=== PATIENT | male | born 1975 | race African-American/Black ===

== ENCOUNTER 2023-12-12 09:21 | Emergency (ER) | payer MEDICAID, SELFPAY ==
[2023-12-12] VITALS (7 sets, daily range): BP systolic 144–166; BP diastolic 100–111; PULSE 61–85; RESP 16–18; TEMP 36.7–37.1; O2SAT 97–99; BMI 27.4
--- NOTE | ~2023-12-12 | XR_ITS ---
EXAMINATION: XR CHEST CLINICAL INFORMATION: Chest heaviness. Lightheaded. COMPARISON: None available. TECHNIQUE: 2 views of the chest were obtained. FINDINGS: The heart is normal in size. The lungs are clear. Pleural spaces are clear. No pneumothorax. No acute osseous abnormality. XR/XR chest 2V IMPRESSION: No acute cardiopulmonary disease.
--- NOTE | 2023-12-12 09:27 | ECG_ITS ---
Test Reason : DIZZINESS Blood Pressure : / mmHG Vent. Rate : 073 BPM Atrial Rate : 073 BPM P-R Int : 212 ms QRS Dur : 096 ms QT Int : 350 ms P-R-T Axes : 035 -29 -04 degrees QTc Int : 385 ms Sinus rhythm with 1st degree A-V block Otherwise normal ECG No previous ECGs available Referred By: Generic ED Physician Electronically Signed By:JUAN REGALADO
[2023-12-12 09:48] LABS: MANUAL DIFF FLAG NO
[2023-12-12 09:49] LABS: Basophils Absolute Auto 0.1 X10*3/uL (0.0-0.2); Basophils Percent Auto 0.9 % (0-2); Eosinophils Absolute Auto 0.3 X10*3/uL (0.0-0.4); Hematocrit 44.7 % (42.0-52.0); Imm Gran Abs Auto 0.02 X10*3/uL (0.00-0.03); Imm Gran Pct Auto 0.3 % (0.0-0.4); Lymphocytes Absolute Auto 2.5 X10*3/uL (1.2-4.9); Lymphocytes Percent Auto 35.4 % (20-40); Mean Corpuscular HGB Conc 33.6 g/dl (31.0-36.0); Mean Corpuscular Hemoglobin 30.6 pg (27.0-33.0); Mean Corpuscular Volume 91.2 fL (80.0-98.0); Mean Platelet Volume 11.6 fL (9.4-12.4); Monocytes Absolute Auto 0.5 X10*3/uL (0.1-1.2); Monocytes Percent Auto 7.5 % (2-11); Neutrophils Absolute Auto 3.6 x10*3/uL (2.0-8.3); Neutrophils Percent Auto 51.9 % (45-73); Platelet Count 195 X10*3/uL (160-400); Red Cell Distribution Width 14.7 % (11.0-16.0); White Blood Count 6.9 X10*3/uL (4.8-10.8)
[2023-12-12 10:05] LABS: Anion Gap 13 (12-20); Blood Urea Nitrogen 16 mg/dL (9-16); Calcium 9.4 mg/dL (8.4-10.2); Carbon Dioxide 25 mmol/L (22-29); Chloride 106 mmol/L (96-108); Creatinine Clr Calc Pharmacy 90.3; Estimated Glomerular Filt Rate > 60; Glucose Random 128 mg/dL (60-115); Potassium 3.6 mmol/L (3.3-5.1); Sodium 140 mmol/L (135-145)
--- NOTE | 2023-12-12 11:19 | ED.GENADULT ---
HPI - General Adult General Chief complaint: Dizziness Stated complaint: Lightheaded Time Seen by Provider: 12/12/23 11:15 Source: patient Mode of arrival: ambulatory Limitations: no limitations History of Present Illness ED Provider: yosi LOMBARDO narrative: Patient is a 48-year-old male with no reported past medical history presenting to the emergency department with complaint of feeling lightheaded with position change for the past several weeks. States he notices this the most when he gets up in the morning and when he goes to bed at night, but has also noticed it when getting out of his car as well. He reports brief episodes of sharp chest pain intermittently which last just a few seconds at at time. Denies shortness of breath or palpitations. Denies any episodes of syncope. Denies recent surgery/immobilization, calf pain or swelling. Denies abdominal pain, nausea or vomiting. Denies headaches or changes in vision. Denies cough or recent URI symptoms. complaint: lightheaded Quality: sharp Pain Consistency: intermittent Treatments prior to arrival: none Related Data Previous Rx's ?Medication ?Instructions ?Recorded amlodipine 5 mg tablet 5 mg PO DAILY #30 tabs 12/12/23 Allergies Allergy/AdvReac Type Severity Reaction Status Date / Time No Known Allergies Allergy Verified 12/12/23 09:27 Review of Systems Review of Systems: As per HPI. Yes all other systems are reviewed and are negative Constitutional: Constitutional: Reports as per HPI [facility] Social History Social History Alcohol intake: current Alcohol intake frequency: 3 or more drinks per day Alcohol type: beer Smoked in Last 30 Days: Yes Substance Use Type: Crack/Cocaine and Marijuana Substance Use Frequency: Occasionally Last Used Substance: Days (ago) Any prior treatment program specific to substance use: No Advance Directives: No Advance Directives Information Provided: Yes Physical Exam ED Vital Signs: Vital Signs - 24 hr 12/12/23 09:24 12/12/23 10:14 12/12/23 10:15 Temperature 98.6 F Pulse Rate 78 85 83 Respiratory Rate 16 Blood Pressure 154/104 H 165/103 H 166/103 H Pulse Oximetry 97 Oxygen Delivery Method Room Air 12/12/23 10:16 12/12/23 12:57 12/12/23 16:29 Temperature 98.7 F 98.1 F Pulse Rate 81 61 69 Respiratory Rate 18 17 Blood Pressure 144/106 H 151/100 H 163/111 H Pulse Oximetry 98 99 Oxygen Delivery Method Room Air Room Air BMI result Body Mass Index 27.4 Vital signs have been reviewed and appear to be correct. Blood pressure elevated. Heart rate normal. Respiratory rate normal. Temperature normal. Oxygen saturation normal. Const General: cooperative, healthy appearing and no acute distress Orientation/consciousness: oriented to person, oriented to place, oriented to time and patient oriented x3 Limitations: no limitations HENMT Head: Yes normocephalic and Yes atraumatic Ears: external ears normal, TM's normal bilaterally and EAC's normal General nose exam: Normal external nose present Face and sinus: Yes face symmetric Mouth: oropharynx normal and moist mucous membranes Throat: Yes uvula midline Eyes General: appearance normal, both eyes and all related structures Pupils: Equal, round and reactive pupils present EOM: EOMs intact bilaterally and No Nystagmus present Neck Neck: Yes normal visual inspection, Yes full ROM, Yes no lymphadenopathy, Yes no meningeal signs and Yes supple Resp Effort & Inspection: normal respiratory effort and able to speak in complete sentences Auscultation: clear to auscultation bilaterally Cardio Rate: regular rate Rhythm: regular rhythm Heart sounds: S1 normal heart sound present and S2 normal heart sound present GI Palpation (GI): Soft to palpation and nontender Auscultation: normoactive bowel sounds General: Yes no CVA tenderness Back/Spine/Pelvis Back: no CVA tenderness Skin General skin exam: elasticity normal and turgor normal Neuro General: oriented to person, oriented to place, oriented to time, patient oriented x3, gait normal, tone normal, moves all extremities, Normal light touch and pain sensation, no meningeal signs, no focal motor deficits, CN's II-XI intact bilaterally and deep tendon reflexes 2+ bilaterally Cranial nerves: Yes Equal, round and reactive pupils present and No Nystagmus present Cognition (Neuro): normal cognition Motor exam (neuro): 5/5 motor strength present throughout, Pronator motor function not present, no tremor noted, no asterixis, Motor fasciculations not present, Normal motor muscle tone present throughout and Motor abnormalities not present Extrem General: Yes full ROM, Yes no pedal edema and Yes no calf tenderness Psych Mental Status: mental status grossly normal Affect: normal affect Thought process: Normal thought process present Course Reevaluation(s) Reevaluation #1: I Sandy Duran PA-C have accepted care of the patient had signed out pending troponin and final disposition. Time: 02:00 Reevaluation #2: Patient's troponins are flat, we will discharge now. Time: 16:14 Medical Decision Making Medical Decision Making [facility] Narrative: Patient is a 48-year-old male with no reported past medical history presenting to the emergency department with complaint of feeling lightheaded with position change for the past several weeks. On exam patient is awake, A+Ox3,BP elevated, VS otherwise WNL, afebrile, normal neurological exam without focal deficits, physical exam findings as above. Given reported symptoms and physical exam findings, initial differential includes cardiac arrhythmia, dehydration, electrolyte abnormality, orthostatic intolerance. Unlikely ACS, but will obtain troponin. Do not suspect PE, PERC negative. Labs notable for troponin of 79.6, will obtain repeat. EKG shows sinus rhythm with 1st degree AV block. Patient signed out to [facility] pending chest x-ray results and repeat troponin. Differential Diagnosis Differential Diagnoses: The differential diagnosis associated with the presentation includes As per [facility]. Admission/Observation Consideration of admission/observation: Escalation of care including admission/observation considered Patient would have been admitted to the hospital had their work up had any findings where hospital admission was appropriate and their clinical presentation warranted hospital admission. Lab Data [facility] Lab Attestation statement: I reviewed the patient's lab results. As per [facility] 12/12/23 09:44 12/12/23 09:44 Labs: Lab Results 12/12/23 12/12/23 12/12/23 Range/Units 09:44 13:24 15:33 WBC 6.9 (4.8-10.8) X10*3/uL RBC 4.90 (4.60-5.80) X10*6/uL Hgb 15.0 (14.0-18.0) g/dl Hct 44.7 (42.0-52.0) % MCV 91.2 (80.0-98.0) fL MCH 30.6 (27.0-33.0) pg MCHC 33.6 (31.0-36.0) g/dl RDW 14.7 (11.0-16.0) % Plt Count 195 (160-400) X10*3/uL MPV 11.6 (9.4-12.4) fL Immature Gran % (Auto) 0.3 (0.0-0.4) % Neut % (Auto) 51.9 (45-73) % Lymph % (Auto) 35.4 (20-40) % Carter % (Auto) 7.5 (2-11) % Eos % (Auto) 4.0 (0-4) % Baso % (Auto) 0.9 (0-2) % Lymph # (Auto) 2.5 (1.2-4.9) X10*3/uL Carter # (Auto) 0.5 (0.1-1.2) X10*3/uL Eos # (Auto) 0.3 (0.0-0.4) X10*3/uL Baso # (Auto) 0.1 (0.0-0.2) X10*3/uL Abs Immat Gran (auto) 0.02 (0.00-0.03) X10*3/uL Absolute Neuts (auto) 3.6 (2.0-8.3) x10*3/uL Absolute Nucleated RBC 0.000 (0.0-0.012) X10*3/uL Nucleated RBC % (auto) 0.0 (0.0-0.2) /100WBC Sodium 140 (135-145) mmol/L Potassium 3.6 (3.3-5.1) mmol/L Chloride 106 (96-108) mmol/L Carbon Dioxide 25 (22-29) mmol/L Anion Gap 13 (12-20) BUN 16 (9-16) mg/dL Creatinine 1.11 (0.5-1.4) mg/dL Estim Creat Clear Calc 90.3 Estimated GFR > 60 Random Glucose 128 H (60-115) mg/dL Calcium 9.4 (8.4-10.2) mg/dL Troponin I High Sens 79.6 H 75.8 H (<3.5-35.0) ng/L Independent Interpretation I performed an independent interpretation of an: EKG (EKG shows sinus rhythm with first degree AV block, rate 73bpm, normal QTc) External Record Review External record reviewed: Inpatient record, Office record and Outpatient record Discharge Plan Discharge Clinical Impression: Light-headedness Patient Disposition: Home, Self-Care Instructions: Dizziness (ED) Additional Instructions: All of your labs including 2 cardiac enzymes were within normal limits for you. There were no concerning changes on your EKG. You need to follow up with your primary care provider, your blood pressure was elevated here in the emergency department. You require additional assessment in the way of a likely ECHO, which is an ultrasound of your heart. I am starting you on a low-dose blood pressure medication called amlodipine, take this medication daily as directed. Call tomorrow to make an appointment with your primary care provider. Prescriptions: New amlodipine 5 mg tablet 5 mg PO DAILY Qty: 30 0RF Print Language: [place]
[2023-12-12 13:48] LABS: Troponin-I High Sensitivity 79.6 ng/L (<3.5-35.0)
[2023-12-12 15:59] LABS: Troponin-I High Sensitivity 75.8 ng/L (<3.5-35.0)
== END 2023-12-12 16:50 | disposition home or self-care (01) ==
PROVIDERS: Physician Assistant Medical; Registered Nurse Emergency; Emergency Provider Emergency Medicine
DX: R42 Dizziness and giddiness (principal); I44.0 Atrioventricular block, first degree
CPT/HCPCS: 36415; 71046; 80048; 84484; 85025; 93005; 99283; 99284